=== PATIENT | female | born 1960 | race Caucasian/White ===

== ENCOUNTER 2024-05-25 08:37 | Day surgery (SDC) | payer BC ==
[2024-05-25] MEDS ORDERED: DIPRIVAN 200 MG/20 ML IV ONE (10:21)
--- NOTE | 2024-05-25 11:37 | XRAY ---
Indication: Right C2-C4 MBB. Intraoperative fluoroscopy provided for 14 seconds. 2 digital spot images submitted for interpretation demonstrates posterior needle tips projecting over the expected right C2-C4 nerve roots. Correlate with intraoperative findings/report.
--- NOTE | 2024-05-25 11:40 | XRAY ---
14 seconds of fluoroscopy was used in surgery for a right C2-C4 MBB.
[2024-05-25] MEDS ORDERED: Lactated Ringers 1,000 ML IV ONE (12:07)
== END 2024-05-25 10:50 | disposition home or self-care (01) ==
LOC: SDC-PAIN 08:37
PROVIDERS: ATTEND Psychiatry & Neurology Pain Medicine
DX: M47.812 Spondylosis without myelopathy or radiculopathy, cervical region (principal); E11.9 Type 2 diabetes mellitus without complications
CPT/HCPCS: 64490; 64491; 72040; 77002; 82947; 93005; J2704